=== PATIENT | female | born 1950 | race Caucasian/White ===

== ENCOUNTER 2024-03-09 09:27 | Emergency (ER) | payer MEDICARE, BC, SELFPAY ==
[2024-03-09 09:28] VITALS: BP 120/78
[2024-03-09 09:43] LABS: % Basophils 0.2 % (0-2); % Eosinophils 0.1 % (0-6); % Immature Granulocytes 0.2 % (0-0.5); % Lymphocytes 4.6 % (20.5-51.1); % Monocytes 5.4 % (1.7-9.3); % Neutrophils 89.5 % (42.2-75.2); Absolute Lymphocytes 0.4 10^3/uL (1.2-3.4); Absolute Monocytes 0.5 10^3/uL (0.1-0.6); Absolute Neutrophils 7.8 10^3/uL (1.4-6.5); Hematocrit 42.6 % (37.0-47.0); Mean Corp Hgb Conc. 32.9 g/dL (33.0-37.0); Mean Corpuscular Hgb 29.4 pg (27.0-31.0); Mean Corpuscular Volume 89.3 fL (81.0-99.0); Mean Platelet Volume 10.4 fL (7.4-10.4); Nucleated Red Blood Cells % 0 %; Platelet Count 143 10^3/uL (130-400); Red Blood Cell Count 4.77 10^6/uL (4.20-5.40); Red Cell Dist. Width 12.9 % (11.5-14.5); White Blood Cell Count 8.7 10^3/uL (4.8-10.8)
[2024-03-09 10:00] LABS: ALT (SGPT) 53 U/L (0-35); AST (SGOT) 57 U/L (14-36); Albumin 4.4 g/dl (3.5-5.0); Alkaline Phosphatase 97 U/L (38-126); Blood Urea Nitrogen 10 mg/dl (7-17); Calcium 9.6 mg/dl (8.4-10.2); Carbon Dioxide 25 mmol/L (22-30); Chloride 105 mmol/L (98-107); Glucose 141 mg/dl (70-99); Potassium 4.1 mmol/L (3.5-5.1); Sodium 139 mmol/L (135-145); Total Bilirubin 0.8 mg/dl (0.2-1.3); Total Protein 6.8 g/dl (6.3-8.2); eGFR > 60.00
[2024-03-09] MEDS: ZOFRAN 4 MG IV (10:54)
[2024-03-09] MEDS: NSS 1000 IV (10:57)
[2024-03-09 11:07] VITALS: BP 119/65; BMI 24.4
--- NOTE | 2024-03-09 12:15 | ED.GENMED ---
History of Present Illness
General
Chief Complaint: Abdominal Symptoms
Source: patient
Exam Limitations: none
Time Seen by Provider: 03/09/24 10:33
Nursing documentation reviewed up to this point in time: agreed with
History of Present Illness
History of Present Illness:
Patient presents to ED secondary to 6-day history of persistent nonbloody diarrhea along with diffuse abdominal cramping sensation. Today however, patient woke up with extreme nausea sensation. Patient states that her grandchild also has
experienced similar symptoms recently, but now has recovered completely. Denies fever or chills. Denies dizziness or weakness. Patient has had history of diverticulitis, but states that her symptoms are different. Denies change in medications or
diet. Denies recent travel.
Past History
Past History
ED Past Medical History: Other (Paroxysmal atrial fib on, lactose intolerance, diverticulosis, asthma, seasonal allergies)
Social History
Tobacco: Non-smoker
Alcohol: Occasional
Family History
Family History: Other (Her father had an IA at 52)
Review of Systems
Review of Systems
Allergies reviewed?: Yes
All Other Systems: ROS reviewed and negative except as documented in HPI and ROS
Constitutional: Reports no symptoms; Denies fever
Respiratory: Reports no symptoms
Cardiac: Reports no symptoms
ABD/GI: Reports abdominal pain, nausea and diarrhea; Denies vomiting
Musculoskeletal: Reports no symptoms
Skin: Reports no symptoms
Neurological: Reports no symptoms; Denies dizzy, headache or weakness
Phy Exam
Physical Exam
Physical Exam:
Physical Exam
General: mild distress, not acutely ill. afebrile
Head: nc/at. eomi
Neck: supple. no meningeal signs.
Heart: s1/s2 regular rate and rhythm, no murmur. equal radial pulses.
Lungs: no acute respiratory distress. clear bilaterally
Abdomen: normal bowel sounds. not tender.
Neuro: alert and oriented. no focal neurological deficits
Skin: no rash
Psychiatric: well kept. interactive and cooperative
Extremities: no edema. no calf tenderness.
Course
Orders/Labs/Results
Orders:
Orders
03/09/24 09:37
CMP [Comprehensive Metabolic Panel] Urgent
Complete Blood Count/With Diff Urgent
03/09/24 10:41
0.9% Sodium Chloride 1000 ml [Nss] 1,000 ml IV BOLUS
Ondansetron Injectable [Zofran] 4 mg IV NOW STA
03/09/24 11:22
Stool Culture Urgent
DIGNA Source: Feces/Stool
Specimen Description:
03/09/24 12:25
CT Abd/pelvis W Iv Cont Urgent
Comment:
Reason For Exam: LLQ pain
Abnormal Lab Results
03/09/24
09:37
MCHC 32.9 L g/dL
(33.0-37.0)
Absolute Neuts (auto) 7.8 H 10^3/uL
(1.4-6.5)
Absolute Lymphs (auto) 0.4 L 10^3/uL
(1.2-3.4)
Neutrophils % 89.5 H %
(42.2-75.2)
Lymphocytes % 4.6 L %
(20.5-51.1)
Creatinine 0.5 L mg/dL
(0.6-1.0)
Glucose 141 H mg/dl
(70-99)
AST 57 H U/L
(14-36)
ALT 53 H U/L
(0-35)
03/09/24 09:37
03/09/24 09:37
Vital Signs
Initial and Last Documented VS:
Initial Vital Signs
Temp Pulse Resp BP Pulse Ox
98.7 F 71 16 120/78 95
03/09/24 09:28 03/09/24 09:28 03/09/24 09:28 03/09/24 09:28 03/09/24 09:28
Last Documented Vital Signs
Temp Pulse Resp BP Pulse Ox
98.6 F 92 16 119/65 98
03/09/24 11:07 03/09/24 11:07 03/09/24 11:07 03/09/24 11:07 03/09/24 11:07
MDM/Problems Addressed
MDM/Problems Addressed:
Patient with an unremarkable workup in ED, including blood work and CT scan of the abdomen pelvis. Patient remains afebrile, helically stable and nontoxic-appearing. History and exam consistent with likely viral gastroenteritis. As such, patient
will be treated conservative and given prescription for Zofran, and recommended patient to stay hydrated along with bland diet, as well as PCP f/u as outpatient.
*Critical Care Note
Total Time (30-74mins, 75-104mins- exclusive of procedures): Not Applicable
ED Attending Note
-
Portions of this chart may have been created with voice recognition software.� Occasional wrong word or��sound alike� substitutions may have occurred due to the inherent limitations of voice recognition software.
Discharge Plan
Departure
Patient Disposition: Home (Routine Discharge)
Date of Disposition: 03/09/24
Time of Disposition: 14:14
Patient with high blood pressure during this ER visit?: No
Discharge Problem:
Gastroenteritis
Instructions: Viral gastroenteritis in adults
Prescriptions:
New
ondansetron 4 mg Tablet,Disintegrating
4 mg PO TIDPRN PRN (Reason: nausea/vomiting) Qty: 12 0RF
No Action
cetirizine [Zyrtec] 10 mg Tablet
10 mg PO DAILY
atenolol 25 mg Tablet
12.5 mg PO DAILY
rosuvastatin [Crestor] 10 mg Tablet
10 mg PO DAILY
Eliquis 5 mg Tablet
5 mg PO BID
Referrals:
Martynec,Reginaldo, MD [Family Provider] -
Activity Restrictions/Additional Instructions:
As discussed, please follow-up with your primary care physician for reevaluation. Your prescription has been sent electronically to [facility] pharmacy in [place].
Interventions
Interventions:
*Risk Screen - Suicide Last Done: 03/09/24 11:07
*General Assessment Last Done: 03/09/24 09:28
*Neglect/Abuse Screening Last Done: 03/09/24 11:07
ED- Fall Risk Assessment Last Done: 03/09/24 11:07
*ED COVID-19 Vaccine History Last Done: 03/09/24 09:28
PT-Rvfgtj-Houhpehheu Assessment Last Done: 03/09/24 11:07
Discharge Date and Time
Print Language: KHMER
[2024-03-09 14:40] VITALS: BP 119/65
== END 2024-03-09 14:40 | disposition home or self-care (01) ==
LOC: EMR 09:27
PROVIDERS: EMERGENCY PHYSICIAN Emergency Medicine; FAMILY PHYSICIAN Internal Medicine Geriatric Medicine
DX: K52.9 Noninfective gastroenteritis and colitis, unspecified (principal); R11.0 Nausea; I48.0 Paroxysmal atrial fibrillation; K57.90 Diverticulosis of intestine, part unspecified, without perforation or abscess without bleeding; J45.909 Unspecified asthma, uncomplicated; E73.9 Lactose intolerance, unspecified; Z91.048 Other nonmedicinal substance allergy status; Z88.0 Allergy status to penicillin; Z79.01 Long term (current) use of anticoagulants
CPT/HCPCS: 99284; 96374; 74177; 80053; 85025; Q9967

== ENCOUNTER → 2024-04-29 13:12 | Outpatient (REF) | payer MEDICARE, BC, SELFPAY | LOC: WDC 13:12 | PROVIDERS: ATTENDING PHYSICIAN Obstetrics & Gynecology; FAMILY PHYSICIAN Internal Medicine Geriatric Medicine | DX: Z12.31 Encounter for screening mammogram for malignant neoplasm of breast (principal) | CPT/HCPCS: 77063; 77067 ==

== ENCOUNTER → 2024-06-18 15:09 | Outpatient (REF) | payer MEDICARE, BC, SELFPAY | LOC: RAD 15:09 | PROVIDERS: ATTENDING PHYSICIAN Internal Medicine Gastroenterology; FAMILY PHYSICIAN Internal Medicine Geriatric Medicine | DX: R19.4 Change in bowel habit (principal) | CPT/HCPCS: 74018 ==

== ENCOUNTER → 2024-10-16 14:13 | Outpatient (REF) | payer MEDICARE, BC, SELFPAY | LOC: HWRAD 14:13 | PROVIDERS: ATTENDING PHYSICIAN Internal Medicine Endocrinology, Diabetes & Metabolism; FAMILY PHYSICIAN Internal Medicine Geriatric Medicine | DX: E04.2 Nontoxic multinodular goiter (principal) | CPT/HCPCS: 76536 ==

== ENCOUNTER → 2025-04-22 13:05 | Outpatient (REF) | payer MEDICARE, BC, SELFPAY | LOC: WDC 13:05 | PROVIDERS: ATTENDING PHYSICIAN Obstetrics & Gynecology; FAMILY PHYSICIAN Internal Medicine Geriatric Medicine | DX: Z12.31 Encounter for screening mammogram for malignant neoplasm of breast (principal) | CPT/HCPCS: 77063; 77067 ==